=== PATIENT | female | born 1950 | race Two or more races ===

== ENCOUNTER 2017-10-22 08:22 | Outpatient (CLI) | payer OTHER | END 2017-10-22 09:02 | disposition home or self-care (01) | LOC: LAB 08:22 | DX: D64.89 Other specified anemias (principal); E03.8 Other specified hypothyroidism; E78.2 Mixed hyperlipidemia; N39.0 Urinary tract infection, site not specified ==

== ENCOUNTER 2017-10-31 11:09 | Outpatient (CLI) | payer OTHER | END 2017-10-31 14:55 | disposition home or self-care (01) | LOC: NUCLEAR 11:09 | DX: I11.9 Hypertensive heart disease without heart failure (principal); R55 Syncope and collapse; I65.23 Occlusion and stenosis of bilateral carotid arteries ==

== ENCOUNTER → 2017-10-31 | Outpatient (CLI) | payer OTHER | END | disposition home or self-care (01) | LOC: TOM 08:45 → NUCLEAR 10:30 | DX: I11.9 Hypertensive heart disease without heart failure (principal); R55 Syncope and collapse; I65.29 Occlusion and stenosis of unspecified carotid artery | CPT/HCPCS: 70470; Q9965 ==

== ENCOUNTER 2019-01-16 10:27 | Outpatient (CLI) | payer OTHER | END 2019-01-16 10:30 | disposition home or self-care (01) | LOC: MAMO-SONO 10:27 | DX: Z12.31 Encounter for screening mammogram for malignant neoplasm of breast (principal); Z87.898 Personal history of other specified conditions; N60.11 Diffuse cystic mastopathy of right breast; N60.12 Diffuse cystic mastopathy of left breast; M25.561 Pain in right knee; M25.562 Pain in left knee ==

== ENCOUNTER 2019-04-28 09:23 | Outpatient (CLI) | payer OTHER | END 2019-04-28 15:00 | disposition home or self-care (01) | LOC: LAB 09:23 | DX: E55.9 Vitamin D deficiency, unspecified (principal); E11.9 Type 2 diabetes mellitus without complications; E78.2 Mixed hyperlipidemia ==

== ENCOUNTER 2019-06-23 09:57 | Emergency (ER) | payer OTHER ==
[~2019-06-23] VITALS: Ht 157.5 cm; Wt 74.8 kg
[2019-06-23] MEDS ORDERED: TOPROL XL50 M1 (10:15)
== END 2019-06-23 14:42 ==
LOC: ER 09:57
DX: B34.9 Viral infection, unspecified (principal); J06.9 Acute upper respiratory infection, unspecified

== ENCOUNTER 2021-05-05 08:44 | Outpatient (CLI) | payer OTHER ==
[~2021-05-05 08:44] MED LIST: TOPROL XL50 M1
== END 2021-05-05 09:00 | disposition home or self-care (01) ==
LOC: RAD 08:44
PROVIDERS: ATTEND Internal Medicine
DX: M25.561 Pain in right knee (principal); M25.562 Pain in left knee; M79.671 Pain in right foot; M19.90 Unspecified osteoarthritis, unspecified site

== ENCOUNTER 2021-05-18 09:05 | Outpatient (CLI) | payer OTHER | END 2021-05-18 09:07 | disposition home or self-care (01) | LOC: NUCLEAR 09:05 | PROVIDERS: ATTEND Internal Medicine | DX: I65.23 Occlusion and stenosis of bilateral carotid arteries (principal) ==

== ENCOUNTER 2022-08-04 09:53 | Outpatient (CLI) | payer OTHER | END 2022-08-04 09:54 | disposition home or self-care (01) | LOC: NUCLEAR 09:53 | PROVIDERS: ATTEND Internal Medicine | DX: I65.23 Occlusion and stenosis of bilateral carotid arteries (principal) ==

== ENCOUNTER 2022-08-04 10:51 | Outpatient (CLI) | payer OTHER | END 2022-08-04 11:08 | disposition home or self-care (01) | LOC: MRI 10:51 | PROVIDERS: ATTEND Internal Medicine | DX: G46.4 Cerebellar stroke syndrome (principal); M25.561 Pain in right knee | CPT/HCPCS: 70551 ==

== ENCOUNTER 2023-07-13 13:01 | Outpatient (CLI) | payer OTHER | END 2023-07-13 13:08 | disposition home or self-care (01) | LOC: MAMO-SONO 13:01 | PROVIDERS: ATTEND Internal Medicine | DX: N60.11 Diffuse cystic mastopathy of right breast (principal); N60.12 Diffuse cystic mastopathy of left breast; G31.84 Mild cognitive impairment of uncertain or unknown etiology; Z12.31 Encounter for screening mammogram for malignant neoplasm of breast ==

== ENCOUNTER 2024-03-09 13:14 | Outpatient (CLI) | payer OTHER | END 2024-03-09 13:16 | disposition home or self-care (01) | LOC: MRI 13:14 | PROVIDERS: ATTEND Internal Medicine | DX: M54.50 Low back pain, unspecified (principal) | CPT/HCPCS: 72148 ==

== ENCOUNTER 2024-03-09 14:55 | Outpatient (CLI) | payer OTHER | END 2024-03-09 14:58 | disposition home or self-care (01) | LOC: LAB 14:55 | PROVIDERS: ATTEND Internal Medicine | DX: R94.7 Abnormal results of other endocrine function studies (principal); E27.40 Unspecified adrenocortical insufficiency ==